=== PATIENT | male | born 1950 | race Hispanic/Latino ===

== ENCOUNTER 2019-10-08 18:54 | Emergency (ER) | payer SELFPAY ==
[~2019-10-08 18:54] MED LIST: EPINEPHrine 1 MG/10 ML SYR ONE
--- NOTE | 2019-10-08 19:26 | EDPHYS ---
Physician Documentation [facility] Name: Billy Shi Age: 69 yrs Sex: Male : 1950 Arrival Date: 10/08/2019 Time: 18:56 Bed 4 Private MD: ED Physician Randy Meza HPI: 10/08 18:57 This 69 yrs old Male presents to ER via Unassigned with complaints of CPR. kdr 18:57 Preceding the arrest, the patient was found down last known well was 17:15. EMS arrived kdr at 18:08 and began ACLS. Established airway and IO without problem. Initial rhythm was asystole. It is reported that PD shocked twice and EMS gave four rounds of epi and shocked twice. Initial rhythm in ED PEA rate of 34 that slowly dwindled. CPR was continued until the patient could be monitor. Given that ACLS had been applied in quality fashion for over 45 minutes with no ROSC, with intact airway and IV established. The patient was pronounced at 18:52 without objection. The arrest occurred at home. Pre-hospital course: The arrest was not witnessed by others. ACLS details:. It is unknown whether or not the patient has had similar symptoms in the past. It is unknown whether or not the patient has recently seen a physician. Historical: - Allergies: 19:06 No Known Allergies; aa1 - PMHx: 18:48 Depression; Hypertension; aa1 - Social history:: Smoking status: unknown. - History obtained from: EMS. ROS: 18:57 Constitutional: Unobtainable kdr 18:57 Unable to obtain ROS due to obtunded state, patient is on ventilator. Exam: 18:57 Constitutional: This is a well developed, well nourished patient who is unresponsive kdr with CPR in progress. Pupils are fixed and dilated Head/Face: Normocephalic, atraumatic. Respiratory: ET tube was inplace with equal breath sounds and no air in the abdomen 18:57 Eyes: Pupils: are fixed and dilated. Vital Signs: 18:48 Pulse 0; Resp 0; rr5 18:55 Pulse 0; Resp 0; rr5 [place] Coma Score: 18:48 Eye Response: none(1). Verbal Response: none(1). Motor Response: none(1). Total: 3. rr5 18:55 Eye Response: none(1). Verbal Response: none(1). Motor Response: none(1). Total: 3. rr5 MDM: 19:25 Patient medically screened. kdr 19:25 Data reviewed: vital signs, nurses notes. Counseling: I had a detailed discussion with kdr the patient and/or guardian regarding: the historical points, exam findings, and any diagnostic results supporting the discharge/admit diagnosis. Administered Medications: 18:48 Drug: NS 0.9% 1000 ml {Note: right lower leg intraosseous.} Route: IV; Rate: 1 bolus; rr5 Site: Other; 18:55 Follow up: IV Status: Order to discontinue infusion; IV Intake: 100ml ; patient rr5 18:51 Drug: EPINEPHrine 0.1mg/mL 1:10,000 1 mg Route: IVP; Site: Other; aa1 18:55 Follow up: Response: Other; patient rr5 Disposition: Patient pronounced on 10/08/19 18:52 by Randy Meza. Impression: Cardiopulmonary Arrest. - Released to Technical Sales Associate. Signatures: Zoë Drew RN RN aa1 Randy Meza MD MD kdr Steve Montilla RN RN rr5 Corrections: (The following items were deleted from the chart) 22:52 19:25 10/08/2019 19:25 Patient pronounced on 10/08/2019 at 18:52 by Randy Meza. rr5 Impression: Cardiopulmonary Arrest. Released to Technical Sales Associate. kdr
--- NOTE | 2019-10-08 19:26 | ER ---
Nurse's Notes [facility] Name: Billy Shi Age: 69 yrs Sex: Male : 1950 Arrival Date: 10/08/2019 Time: 18:56 Bed 4 Private MD: Diagnosis: Cardiopulmonary Arrest Presentation: 10/08 18:48 Presenting complaint: EMS states: call came in from pt's family reporting he was aa1 unresponsive at approx 1800 this evening. Upon EMS arrival pt was found with no pulse and apneic. BLS initiated by PD prior to their arrival and it was reported that pt was shocked x 2 via AED. ACLS initiated by EMS at 1808 and initial rhythm reported to be asystole which converted in VF upon which one shock was delivered. After which pt remained in PEA. Epi x 4 and Bicarb x 1 administered VETERINARY RADIOLOGIST by EMS. Upon arrival to ED pt remains in PEA. 6.5 ETT present, 23 cm at teeth. ACLS continued by ED staff at time of arrival. Transition of care: patient was not received from another setting of care. Onset of symptoms was October 08, 2019. Care prior to arrival: Oral intubation, CPR via thumper performed by EMS was defibrillated and is still in progress. Activity prior to arrival: unresponsive. 18:48 Method Of Arrival: EMS: [facility] aa1 18:48 Acuity: DIVYA 1 aa1 18:48 Compressions began prior to arrival. aa1 18:48 Risk Assessment: Do you want to hurt yourself or someone else? Unable to obtain. rr5 Triage Assessment: 18:48 General: Appears ongoing CPR no heart rate and respiratory rate. rr5 18:48 General: Behavior is unresponsive. rr5 18:48 Pain: Unable to use pain scale. Patient is intubated. rr5 Historical: - Allergies: 19:06 No Known Allergies; aa1 - PMHx: 18:48 Depression; Hypertension; aa1 - Social history:: Smoking status: unknown. - History obtained from: EMS. Screenin:48 Abuse screen: unknown. Nutritional screening: unknown. Tuberculosis screening: unknown. rr5 18:49 Fall Risk Secondary diagnosis (15 points) arrested. IV access (20 points). Gait- rr5 Impaired (20 pts.). Mental Status- Overestimates/Forgets Limitations (15 pts.). Total Lemos Fall Scale indicates High Risk Score (45 or more points). Fall prevention measures have been instituted. Assessment: 18:48 CPR assessment: unresponsive, no respiratory effort, intubated, Ambu ventilation, aa1 cyanotic. Cardiac rhythm is PEA. 18:48 Reassessment: came by EMS ongoing CPR, intubated ET inserted connected to bag valve rr5 mask, resuscitation ongoing, intra osseous at right lower leg ongoing NS bolus. attached to monitoring and evaluation advisor and pads follow ACLS protocol. 20:00 Reassessment: call made to life give spoke to "conrado" information given. case number [id number] . she will call back after 90 minutes for the update. she said patient is a candidate for donation. 20:05 Reassessment: streetcar repairer yovana middleton came and see the body. rr5 20:20 Reassessment: according to judge middleton not for medical genetics director case. rr5 20:25 Reassessment: Kole Ladd boring machine operator officer from [place] saw the patient and rr5 talked to family member. 22:00 Reassessment: son of the patient refused for the life gift donation. rr5 22:15 Reassessment: Son at bedside, reported they will use [facility] services. ea 22:30 Reassessment: [facility] staff came spoke to patients relative and agreed for the 5 service. body taken by the staff. body release form signed. Vital Signs: 18:48 Pulse 0; Resp 0; rr5 18:55 Pulse 0; Resp 0; rr5 [place] Coma Score: 18:48 Eye Response: none(1). Verbal Response: none(1). Motor Response: none(1). Total: 3. rr5 18:55 Eye Response: none(1). Verbal Response: none(1). Motor Response: none(1). Total: 3. rr5 ED Course: 18:48 Patient arrived in ED. aa1 18:48 Patient has correct armband on for positive identification. rr5 18:48 school lunch monitor on. Pulse ox on. NIBP on. rr5 18:48 Arm band placed on. rr5 18:48 Maintain EMS IV. Dressing intact. Good blood return noted. Site clean \\T\\ dry. Gauge \\T\\ rr 5 site: intraosseous at right lower leg. Assist ventilation with Ambu bag. 18:55 No provider procedures requiring assistance completed. IV fluid discontinue. rr5 18:56 Randy Meza MD is Attending Physician. kdr 19:05 Triage completed. aa1 19:24 Randy Meza MD is Pronouncing Provider. kdr Administered Medications: 18:48 Drug: NS 0.9% 1000 ml {Note: right lower leg intraosseous.} Route: IV; Rate: 1 bolus; rr5 Site: Other; 18:55 Follow up: IV Status: Order to discontinue infusion; IV Intake: 100ml ; patient rr5 18:51 Drug: EPINEPHrine 0.1mg/mL 1:10,000 1 mg Route: IVP; Site: Other; aa1 18:55 Follow up: Response: Other; patient rr5 Intake: 18:55 IV: 100ml; Total: 100ml. rr5 18:55 IV: 1100ml (IV Fluid); Total: 1200ml. rr5 Outcome: 18:55 Outcome Patient rr5 22:30 Patient : Time of 18:55 Pronounced by Randy Meza MD Body to rr5 home. 22:30 Condition: 22:30 Instructed on for the service and life gift donor. 22:52 Patient left the ED. rr5 Signatures: Zoë Drew RN RN aa1 Randy Meza MD MD kdr Sonia Harrell RN RN Lucy Oliveira RN RN ea Roque, Raymond RN RN rr5 Corrections: (The following items were deleted from the chart) 18:57 18:56 Patient arrived in ED. aa 20:26 20:26 IV Status: Order to discontinue infusion; IV Intake: 100ml ; patient rr5 rr5
== END 2019-10-08 22:52 ==
LOC: ER 18:54
DX: I46.9 Cardiac arrest, cause unspecified (principal); I10 Essential (primary) hypertension
CPT/HCPCS: 92950; 96374; 99285; J0171